=== PATIENT | female | born 1975 | race Caucasian/White ===

== ENCOUNTER → 2017-09-12 | Outpatient (CLI) | payer OTHER ==
[~2017-09-12] MED LIST: HYDR-5688 PO
[2017-09-12 09:33] LABS: BASO % 0.5 %; BASO ABS # 0.05 K/uL (0-0.2); EOS % 1.9 %; HEMATOCRIT 40.9 % (37-47); IG# 0.06 K/uL (0.00-0.02); LYMPH % 24.1 %; LYMPH ABS # 2.54 K/uL (1.2-3.4); MEAN CELL VOLUME 89.7 fL (80-100); MEAN CORPUSCULAR HEMOGLOBIN 30.7 pg (25-34); MEAN CORPUSCULAR HGB CONC 34.2 g/dl (32-36); MEAN PLATELET VOLUME 10.9 fL (7.4-10.4); MONO % 4.3 %; MONO ABS # 0.45 K/uL (0.11-0.59); NEUT % 68.6 %; NEUT ABS # 7.23 K/uL (1.4-6.5); PLATELET COUNT 269 K/uL (130-400); RED CELL DISTRIBUTION WIDTH CV 12.8 % (11.5-14.5); RED CELL DISTRIBUTION WIDTH SD 41.9 fL (36.4-46.3); WHITE BLOOD COUNT 10.53 K/uL (4.8-10.8)
[2017-09-12 10:07] LABS: ALBUMIN 3.7 gm/dl (3.4-5.0); ALT/SGPT 24 U/L (12-78); AST/SGOT 13 U/L (15-37); BLOOD UREA NITROGEN 16 mg/dl (7-18); CALCIUM 8.6 mg/dl (8.5-10.1); CARBON DIOXIDE 25 mmol/L (21-32); CREATININE 0.86 mg/dl (0.60-1.20); GLUCOSE 102 mg/dl (70-99); POTASSIUM 3.7 mmol/L (3.5-5.1); SODIUM 138 mmol/L (136-145)
[2017-09-12 10:18] LABS: ALKALINE PHOSPHATASE 81 U/L (45-117); CHOLESTEROL 194 mg/dl (0-200); LDL CHOLESTEROL CALCULATED 125 mg/dl; TOTAL PROTEIN 7.3 gm/dl (6.4-8.2)
== END | disposition home or self-care (01) ==
LOC: C.LAB1850 07:29
PROVIDERS: ATTEND Neuromusculoskeletal Medicine & OMM
DX: Z00.00 Encounter for general adult medical examination without abnormal findings (principal); E28.2 Polycystic ovarian syndrome; E66.9 Obesity, unspecified

== ENCOUNTER → 2017-10-02 | Outpatient (CLI) | payer OTHER ==
--- NOTE | 2017-10-02 12:18 | DIAGNOSTIC IMAGING REPORT ---
ULTRASOUND SOFT TISSUES CLINICAL HISTORY: Lipoma. COMPARISON STUDY: No priors. FINDINGS: Real-time, grayscale, and color flow sonography of the soft tissues in the lower neck/upper back performed the indicator site of interest. There is a well-circumscribed homogeneously hypoechoic soft tissue lesion identified the site of interest. This measures 9.8 x 2.2 x 5.6 cm. The appearance is typical for a lipoma. No internal vascularity is seen on color imaging. IMPRESSION: There is a 9 point centimeter soft tissue lesion identified at the indicated site of interest in the lower neck/upper back. Although pathologically indeterminant the appearance is typical for a lipoma as clinically suspected. Electronically signed by: Marquis Abbott M.D. 10/02/2017 12:17 PM Dictated Date/Time: 10/02/2017 12:15 PM
== END | disposition home or self-care (01) ==
LOC: C.ULTR 11:17
PROVIDERS: ATTEND Surgery
DX: D17.1 Benign lipomatous neoplasm of skin and subcutaneous tissue of trunk (principal)

== ENCOUNTER → 2017-10-06 | Day surgery (SDC) | payer OTHER ==
[2017-09-29 10:27] VITALS: BMI 41.0
[2017-10-02 12:38] VITALS: Ht 162.6 cm; Wt 108.9 kg
--- NOTE | 2017-10-02 12:50 | PAT Medication Instructions ---
Service Date Oct 02, 2017. Current Home Medication List No Active Prescriptions or Reported Meds Medication Instructions For Your Scheduled Surgery No Active Prescriptions or Reported Meds-- Please contact PAT department if starting any medications prior to surgery. If you have any questions please call us at [phone] or [phone] or [phone]
[~2017-10-06] VITALS: Ht 162.6 cm; Wt 108.9 kg
[~2017-10-06] MED LIST changes: +ATROPINE SULFATE 0.1 MG/ML 5ML SYR IV PRN; +BUPIVACAINE 0.5 % 5 MG/1 ML MPF 30ML VIAL ONE; +CEFAZOLIN 2000MG IV PUSH 10 ML IV SCH; +DEXAMETHASONE SOD INJ 4 MG/ML VIAL IV PRN; +DEXAMETHASONE SOD INJ 4 MG/ML VIAL ONE; +EpHEDrine SULFATE INJ 50 MG/ML AMP IV PRN; +FENTANYL CITRATE INJ 50 MCG/1 ML 2 ML VIAL IV PRN; +FENTANYL CITRATE INJ 50 MCG/1 ML 2 ML VIAL ONE; +GLYCOPYRROLATE INJ 0.2 MG/ML VIAL ONE; +HYDROCODONE/ACETAMIN 5/325MG TAB PO PRN; +KETOROLAC TROMETHAMINE 30 MG/ML VIAL IV. PRN; +LABETALOL HCL IV 5 MG/ML 20ML IV PRN; +LACTATED RINGER'S 1000ML 1,000 ML IV SCH; +LIDOCAINE HCL 2% 2 ML VIAL (20MG/ML) ONE; +METOCLOPRAMIDE HCL INJ 5 MG/ML 2 ML VIAL IV PRN; +MIDAZOLAM HCL 1 MG/ML 2ML VIAL ONE; +MoRPHine SULFATE 10 MG/ML CARP/VIAL IV PRN; +MoRPHine SULFATE 4 MG/ML 1 ML CARP\\VIAL IV PRN; +NEOSTIGMINE METHYLSULFATE 5 MG/5 ML SYR ONE; +ONDANSETRON INJ 2 MG/ML 2 ML VIAL IV PRN; +ONDANSETRON INJ 2 MG/ML 2 ML VIAL ONE; +PHENYLEPHRINE 100MCG/ML 5ML SYR IV PRN; +PROPOFOL IV EMULSION 10 MG/ML 20 ML VIAL IV ONE; +ROCURONIUM BROMIDE 10 MG/ML 5 ML VIAL IV ONE
[2017-10-06] MEDS: LACTATED RINGER'S 1000ML 1,000 ML IV SCH ×2 (08:15→10:59)
--- NOTE | 2017-10-06 09:06 | History & Physical Bridge - [place] ---
H&P Re-Evaluation Bridge Note: I have examined the patient, reviewed the History & Physical and in the interval since the performance of the History & Physical I have noted the following changes of clinical significance: No changes noted
--- NOTE | 2017-10-06 10:03 | Discharge Instructions ---
Discharge Instructions Date of Service Oct 06, 2017. Visit Reason for Visit: Lipoma Posterior Neck Discharge Discharge Diagnosis / Problem: lipoma excision Discharge Goals Goal(s): Decrease discomfort Activity Recommendations Activity Limitations: as noted below Shower/Bathe: tomorrow Anesthesia . Post Anesthesia Instructions: If you have had General Anesthesia or IV Sedation: * Do not drive today. * Resume driving when surgeon permits. * Do not make important decisions or sign legal documents today. * Call surgeon for: 1. Temperature elevations greater than 101 degrees F. 2. Uncontrollable pain. 3. Excessive bleeding. 4. Persistent nausea and vomiting. 5. Medication intolerance (nausea, vomiting or rash). * For nausea and vomiting use only clear liquids such as: tea, soda, bouillon until nausea subsides, then gradually increase diet as tolerated. * If you have any concerns or questions, call your surgeon's office. If physician is unavailable and it is an emergency, call 911 or go to the nearest emergency room. . Instructions / Follow-Up Instructions / Follow-Up Dr. Dodson in 1-2 weeks as planned, call [phone] for any questions You may take Tylenol or ibuprofen for pain instead of [place] Diet Recommendations Recommended Home Diet: no limitations Procedures Procedures Performed: Posterior Neck Mass Excision Pending Studies Studies pending at discharge: no Medical Emergencies . Who to Call and When: Medical Emergencies: If at any time you feel your situation is an emergency, please call 911 immediately. . Non-Emergent Contact Non-Emergency issues call your: Surgeon Call Non-Emergent contact if: you have a fever, temperature is above 101.5, your pain is not controlled, wound has increased drainage, wound has increased redness . . "Provider Documentation" section prepared by Corby Pelletier. .
--- NOTE | 2017-10-06 10:19 | [facility] Post Operative Brief Note ---
Immediate Operative Summary Operative Date Oct 06, 2017. Pre-Operative Diagnosis Lipoma posterior neck Post-Operative Diagnosis same Procedure(s) Performed Posterior Neck Mass Excision Surgeon Dr. Dodson Stabilizer Operator Surgeon(s) none Estimated Blood Loss 3ml Findings Consistent with Post-Op Diagnosis large posterior neck lipoma excised, approximately 8 cm in size Specimens A: Posterior Neck Mass Drains None Anesthesia Type General Complication(s) none Disposition Accompanied Pt To Recover: no Disposition: Recovery Room / PACU
--- NOTE | 2017-10-06 10:23 | [facility] Operative Report ---
Operative Report Operative Date Oct 06, 2017. Pre-Operative Diagnosis Lipoma posterior neck Post-Operative Diagnosis same Procedure(s) Performed Posterior Neck Mass Excision Surgeon Dr. Dodson Parking Manager Surgeon(s) none Estimated Blood Loss 3ml Findings Large posterior neck mass excised, likely lipoma, partially subfascial, approximately 87 m in size Specimens A: Posterior Neck Mass Drains none Anesthesia GETA Complication(s) None Disposition Recovery Room / PACU Indications 42-year-old female with large posterior neck mass, ultrasound showed 9 cm lipoma. Plan for excision of posterior neck mass. The risks of the procedure were discussed, all questions were answered, and the patient agreed to proceed with surgery as planned. Description of Procedure The patient was properly identified, consented, and taken to the operating room where she was placed in the supine position. General endotracheal anesthesia was induced and she was placed in the prone position. SCDs and a safety belt were placed. Preoperative antibiotics were administered. The patient's posterior neck was prepped and draped in the standard sterile fashion. Surgical timeout was performed and all parties were in agreement that this was the correct patient and procedure to be performed and we continued as planned. Local anesthetic was injected along the skin incision. A transverse incision was made overlying the mass and deepened down through the subcutaneous tissue with electrocautery. The lipoma was circumferentially dissected, excised, and passed off the table as specimen. The mass is partially subfascial was approximately 8-9 cm in size. The wound was irrigated and hemostasis was confirmed. The skin was closed with interrupted 3-0 Vicryl deep dermal sutures , followed by 4-0 Monocryl running subcuticular suture. Dermabond was placed over the wound. The patient was extubated in the operating room and taken to the PACU where she recovered without apparent incident. All sponge, instrument and needle counts were correct at the conclusion of the procedure. The patient tolerated the procedure well. I attest to the content of the Intraoperative Record and any orders documented therein. Any exceptions are noted below.
--- NOTE | 2017-10-06 11:40 | Anesthesia Progress Nt - [facility] ---
Anesthesia Post Op Note Date & Time Oct 06, 2017 at 11:40 Vital Signs Pain Intensity: 3 Vital Signs Past 12 Hours Date Time Temp Pulse Resp B/P (MAP) Pulse Ox O2 Delivery O2 Flow Rate FiO2 10/06/17 11:28 36.1 74 12 121/75 94 Room Air 10/06/17 11:27 76 0 10/06/17 11:27 77 0 97 10/06/17 11:26 123/76 10/06/17 11:22 69 0 10/06/17 11:22 69 0 97 10/06/17 11:21 118/74 10/06/17 11:17 68 0 97 10/06/17 11:17 69 0 10/06/17 11:16 130/81 10/06/17 11:12 64 0 10/06/17 11:12 63 0 97 10/06/17 11:11 126/79 10/06/17 11:07 65 0 95 10/06/17 11:07 66 0 10/06/17 11:06 126/80 10/06/17 11:02 71 17 98 10/06/17 11:02 71 17 10/06/17 11:01 140/94 10/06/17 10:57 72 6 100 10/06/17 10:57 72 6 10/06/17 10:56 130/86 10/06/17 10:52 72 0 98 10/06/17 10:52 72 0 10/06/17 10:51 136/91 10/06/17 10:47 76 0 10/06/17 10:47 75 0 99 10/06/17 10:46 131/88 10/06/17 10:42 69 1 10/06/17 10:42 67 1 99 10/06/17 10:41 142/95 10/06/17 10:37 78 14 10/06/17 10:37 77 14 100 10/06/17 10:36 131/107 10/06/17 10:32 87 17 100 10/06/17 10:32 88 17 10/06/17 10:31 135/115 10/06/17 10:29 149/102 10/06/17 10:28 166/103 10/06/17 10:27 36.3 83 20 166/103 100 Mask 6 10/06/17 07:55 36.4 98 18 137/98 (111) 96 Room Air Notes Mental Status: alert / awake / arousable, participated in evaluation Pt Amnestic to Procedure: Yes Nausea / Vomiting: adequately controlled Pain: adequately controlled Airway Patency, RR, SpO2: stable & adequate BP & HR: stable & adequate Hydration State: stable & adequate Anesthetic Complications: no major complications apparent
[2017-10-06 11:49] VITALS: TEMP 36.6
[2017-10-06 12:02] VITALS: BP 126/85; PULSE 87; O2SAT 95
== END | disposition home or self-care (01) ==
LOC: X.SURG 07:41
PROVIDERS: ATTEND Surgery
DX: D17.0 Benign lipomatous neoplasm of skin and subcutaneous tissue of head, face and neck (principal); E66.9 Obesity, unspecified; E28.2 Polycystic ovarian syndrome; Z82.49 Family history of ischemic heart disease and other diseases of the circulatory system